=== PATIENT | male | born 1975 | race Caucasian/White ===

== ENCOUNTER → 2024-05-03 | Outpatient (CLI) | payer BC ==
--- NOTE | 2024-05-03 11:05 | US ---
EXAMINATION TYPE: US liver DATE OF EXAM: 05/03/2024 COMPARISON: NONE CLINICAL INDICATION: Male, 49 years old with history of R74.8 Elevated liver enzymes; elevated liver enzymes TECHNIQUE: Grayscale and color Doppler imaging of the right upper quadrant was performed. FINDINGS: EXAM MEASUREMENTS: Liver Length: 16.7 cm Gallbladder Wall: 0.25 cm CBD: 0.47 cm Right Kidney: 10.6 x 5.2 x 5.1 cm PATIENT RELATIONS REPRESENTATIVE NOTES: Pancreas: heterogeneous Liver: heterogeneous and increased attenuation Gallbladder: wnl Evidence for sonographic Kramer's sign: No CBD: wnl Right Kidney: wnl IMPRESSION: 1. Liver is heterogeneous in appearance likely in the basis of underlying hepatocellular disease. 2. Pancreas also appear somewhat heterogeneous by ultrasound. This is a nonspecific finding. Recommen d dedicated CT of the abdomen to assess the liver and pancreas. [facility], , 05/03/2024 11:02 AM
== END | disposition home or self-care (01) ==
LOC: RADUSWWP 07:19
PROVIDERS: ATTEND Family Medicine
DX: R74.8 Abnormal levels of other serum enzymes (principal)
CPT/HCPCS: 76705